=== PATIENT | female | born 1990 | race Hispanic/Latino ===

== ENCOUNTER 2017-04-16 20:58 | Emergency (ER) | payer OTHER ==
[2017-04-16 21:00] VITALS: BMI 30.2
[2017-04-16 21:29] VITALS: TEMP 98.9
--- NOTE | 2017-04-16 22:12 | ED PDOC ---
Arrival/HPI - General Historian: Patient - History of Present Illness Time/Duration: Other (6 days ago) Symptom Onset: Sudden Symptom Course: Worsening Quality: Aching Severity Level: 6 - General Chief Complaint: Lower Extremity Problem/Injury Time Seen by Provider: 04/16/17 21:39 - History of Present Illness Narrative History of Present Illness (Text): 04/16/17 22:25 26-year-old female presents today with a right ankle fracture. Patient states she had x-rays at [facility] and it showed that there was a fracture of the distal fibula. Patient states that the injury occurred last 6 days ago. Patient states she just rolled her ankle and has been having pain and swelling ever since. Patient states she has been taking Naprosyn and Flexeril. Patient denies numbness weakness or tingling in the extremity. Patient states she has an orthopedist that she is going to follow up with that she was told that she needed to have a splint. (Adriane Martinez) Past Medical History - Provider Review Nursing Documentation Reviewed: Yes - Travel History Have you recently traveled outside [place] w/in the past 3 mons?: No - Infectious Disease Hx of Infectious Diseases: None - Tetanus Immunization Tetanus Immunization: Unknown - Cardiac Hx Cardiac Disorders: No - Pulmonary Hx Respiratory Disorders: No - Neurological Hx Neurological Disorder: Yes Hx Migraine: Yes - HEENT Hx HEENT Disorder: No - Renal Hx Renal Disorder: No - Endocrine/Metabolic Hx Endocrine Disorders: No - Hematological/Oncological Hx Blood Disorders: Yes Hx Anemia: Yes - Integumentary Hx Dermatological Disorder: No - Musculoskeletal/Rheumatological Hx Back Pain: Yes Other/Comment: FX R ANKLE - Gastrointestinal Hx Gastrointestinal Disorders: Yes Hx Gall Bladder Disease: Yes (CHOLEYCYSTECTOMY) - Genitourinary/Gynecological Hx Genitourinary Disorders: No - Psychiatric Hx Psychophysiologic Disorder: Yes Hx Anxiety: Yes Hx Substance Use: No - Surgical History Hx Cholecystectomy: Yes - Anesthesia Hx Anesthesia: No Family/Social History - Physician Review Nursing Documentation Reviewed: Yes Family/Social History: Unknown Family HX Smoking Status: Never Smoked Hx Alcohol Use: No Hx Substance Use: No Allergies/Home Meds Allergies/Adverse Reactions: Allergies cucumber Allergy (Verified 04/16/17 21:24) ITCHING Home Medications: Home Meds Medication Instructions Recorded Confirmed Drospir/Eth Estra/Levomefol Ca 1 tab PO DAILY 12/20/16 04/16/17 [Laura 28 Tablet] Cyclobenzaprine [Flexeril] 10 mg PO HS 04/16/17 04/16/17 Review of Systems - Review of Systems Constitutional: absent: Fatigue, Fevers Respiratory: absent: SOB, Cough Cardiovascular: absent: Chest Pain, Palpitations Gastrointestinal: absent: Abdominal Pain, Nausea, Vomiting Musculoskeletal: Arthralgias (right ankle pain) Skin: absent: Rash, Pruritis Neurological: absent: Headache, Dizziness Physical Exam Vital Signs Reviewed: Yes Temperature: Afebrile Blood Pressure: Normal Pulse: Tachycardic Respiratory Rate: Normal Appearance: Positive for: Well-Appearing, Non-Toxic, Comfortable Pain Distress: None Mental Status: Positive for: Alert and Oriented X 3 - Systems Exam Head: Present: Atraumatic Mouth: Present: Moist Mucous Membranes Neck: Present: Normal Range of Motion Respiratory/Chest: Present: Clear to Auscultation Cardiovascular: Present: Regular Rate and Rhythm, Normal S1, S2. No: Murmurs Lower Extremity: Present: NORMAL PULSES, Normal ROM, Tenderness (right ankle; + ttp over lateral malleolus: +edema, + ecchymosis; RIght foot; non tender; + ecchymosis; sensation and distal pulses intact. ), Swelling, Neurovascularly Intact, Capillary Refill < 2 s. No: CALF TENDERNESS, Erythema, Deformity Skin: Present: Warm, Dry Psychiatric: Present: Alert Medical Decision Making ED Course and Treatment: 04/16/17 22:27 26-year-old female presents stating she needs a splint; Patient with a copy of x -rays and radiology report of the right ankle which shows a 6.7 mm osseous density at the tip of the distal fibula suspicious for an avulsion fracture. Toradol was given for pain Patient placed into a posterior short leg splint Crutches given for ambulation Patient states she has an orthopedist Dr. Thacker that she will follow up with. I stressed the importance of follow-up with the orthopedist that she will need a cast. impression; ankle fracture Continue medications as prescribed for pain Rest, ice, compression, elevation Use crutches for ambulation Followup with the orthopedist within the next 2 days Return if symptoms worsen persist or if new symptoms develop (Adriane Martinez) - Medication Orders Current Medication Orders: Discontinued Medications Ketorolac Tromethamine (Toradol) 60 mg IM STAT STA Stop: 04/16/17 21:40 Last Admin: 04/16/17 21:56 Dose: 60 mg Procedures - Splinting Location: right ankle Hand-Made Type: fiberglass Splint: posterior short leg splint Pre-Proc Neuro Vasc Exam: normal Post-Proc Neuro Vasc Exam: normal Disposition/Present on Arrival - Present on Arrival Any Indicators Present on Arrival: No History of DVT/PE: No History of Uncontrolled Diabetes: No Urinary Catheter: No History of Decub. Ulcer: No History Surgical Site Infection Following: None - Disposition Have Diagnosis and Disposition been Completed?: Yes Disposition Time: 22:09 Patient Plan: Discharge - Disposition Diagnosis: Ankle fracture Disposition: HOME/ ROUTINE Condition: GOOD Discharge Instructions (ExitCare): Ankle Fracture (ED) Additional Instructions: Continue medications as prescribed for pain Rest, ice, compression, elevation Use crutches for ambulation Followup with the orthopedist within the next 2 days Return if symptoms worsen persist or if new symptoms develop Referrals: Jimmy Kwok MD [Primary Care Provider] - Follow up with primary Valerio Mtz MD [Staff Provider] - Follow up with primary Forms: WORK NOTE
[2017-04-16 23:28] VITALS: BP 127/69; PULSE 96; RESP 12; O2SAT 99
== END 2017-04-16 23:32 | disposition home or self-care (01) ==
LOC: ED 20:58
DX: S82.831A Other fracture of upper and lower end of right fibula, initial encounter for closed fracture (principal); X58.XXXA Exposure to other specified factors, initial encounter
CPT/HCPCS: 29515; 96372; 99284; J1885